=== PATIENT | female | born 1940 | race Two or more races ===

== ENCOUNTER 2019-11-16 11:57 | Inpatient (IN) | payer OTHER ==
[~2019-11-16] VITALS: Ht 175.3 cm; Wt 79.4 kg
[2019-11-19] MEDS ORDERED: ELIQUIS2.5 MG PO (10:50)
[2019-11-19] MEDS ORDERED: PERCOCET 5-3251 EACH PO (10:50)
== END 2019-11-19 12:44 | DRG 470 ==
LOC: ER 11:57 → SURH 18:23 → SEC-K 18:23 → MEDJ 19:36 → SURH 19:42
PROVIDERS: ADMIT Orthopaedic Surgery; ATTEND Orthopaedic Surgery
PROC: 0SRS01Z Replacement of Left Hip Joint, Femoral Surface with Metal Synthetic Substitute, Open Approach (ICD-10-PCS; principal; 2019-11-16)
PROC: 0MTM0ZZ Resection of Left Hip Bursa and Ligament, Open Approach (ICD-10-PCS; 2019-11-16)
DX: S72.032A Displaced midcervical fracture of left femur, initial encounter for closed fracture (principal); M80.052A Age-related osteoporosis with current pathological fracture, left femur, initial encounter for fracture; M16.12 Unilateral primary osteoarthritis, left hip; M70.62 Trochanteric bursitis, left hip; W18.39XA Other fall on same level, initial encounter; Y93.89 Activity, other specified; Y92.89 Other specified places as the place of occurrence of the external cause; Y99.8 Other external cause status

== ENCOUNTER → 2020-01-06 | Outpatient (CLI) | payer OTHER ==
[~2020-01-06] VITALS: Ht 175.3 cm; Wt 78.0 kg
[~2020-01-06] MED LIST: ELIQUIS2.5 MG PO; PERCOCET 5-3251 EACH PO
== END | disposition home or self-care (01) ==
LOC: OFIC 805 11:02
PROVIDERS: ATTEND Otolaryngology
DX: H61.21 Impacted cerumen, right ear (principal); H90.3 Sensorineural hearing loss, bilateral

== ENCOUNTER 2020-09-06 09:40 | Outpatient (CLI) | payer OTHER | END 2020-09-06 09:48 | disposition home or self-care (01) | LOC: RAD 09:40 | PROVIDERS: ATTEND Specialist | DX: J45.998 Other asthma (principal) ==

== ENCOUNTER 2020-10-23 13:51 | Outpatient (CLI) | payer OTHER | END 2020-10-23 13:57 | disposition home or self-care (01) | LOC: RAD 13:51 → MAMO-SONO 14:15 | PROVIDERS: ATTEND Specialist | DX: N20.0 Calculus of kidney (principal); K59.01 Slow transit constipation ==

== ENCOUNTER → 2020-11-02 | Outpatient (CLI) | payer OTHER | END | disposition home or self-care (01) | LOC: TOM 12:26 | PROVIDERS: ATTEND Specialist | DX: N20.0 Calculus of kidney (principal) ==

== ENCOUNTER → 2024-07-10 | Emergency (ER) | payer OTHER ==
[~2024-07-10] VITALS: Ht 172.7 cm; Wt 63.5 kg
[~2024-07-10] MED LIST changes: +ADVIL DUAL ACT1 EACH PO; +KETOROLAC TROMETHAMINE 15 MG VIAL IM STA
== END | disposition home or self-care (01) ==
LOC: ER 09:01
DX: S70.02XA Contusion of left hip, initial encounter (principal); W18.39XA Other fall on same level, initial encounter; Y93.89 Activity, other specified; Y92.89 Other specified places as the place of occurrence of the external cause; Y99.9 Unspecified external cause status; M51.369 Other intervertebral disc degeneration, lumbar region without mention of lumbar back pain or lower extremity pain; Z96.642 Presence of left artificial hip joint; I10 Essential (primary) hypertension; Z88.8 Allergy status to other drugs, medicaments and biological substances
CPT/HCPCS: 72100; 73502; 96372; 99283; J1885

== ENCOUNTER 2024-08-06 12:47 | Emergency (ER) | payer OTHER ==
[~2024-08-06] VITALS: Ht 175.3 cm; Wt 72.6 kg
[~2024-08-06 12:47] MED LIST changes: -KETOROLAC TROMETHAMINE 15 MG VIAL IM STA
[2024-08-06] MEDS ORDERED: KETOROLAC TROMETHAMINE 30 MG VIAL IV ONE (15:15)
[2024-08-06] MEDS ORDERED: DEXAMETHASONE SODIUM PHOSPHATE 4 MG/ML VIAL IV ONE (15:15)
[2024-08-06] MEDS ORDERED: DEXAMETHASONE SODIUM PHOSPHATE 4 MG/ML VIAL ONE (15:44)
[2024-08-06] MEDS ORDERED: KETOROLAC TROMETHAMINE 30 MG VIAL ONE (15:44)
== END 2024-08-06 18:04 ==
LOC: ER 12:47
DX: S32.10XA Unspecified fracture of sacrum, initial encounter for closed fracture (principal); S32.14XA Type 1 fracture of sacrum, initial encounter for closed fracture; W18.39XA Other fall on same level, initial encounter; Y93.89 Activity, other specified; Y92.018 Other place in single-family (private) house as the place of occurrence of the external cause; Y99.9 Unspecified external cause status; I10 Essential (primary) hypertension; Z88.8 Allergy status to other drugs, medicaments and biological substances; Z91.013 Allergy to seafood; M85.88 Other specified disorders of bone density and structure, other site
CPT/HCPCS: 72131; 73503; 96365; 99284; J1100; J1885